=== PATIENT | male | born 1980 | race Caucasian/White ===

== ENCOUNTER 2022-03-20 10:10 | Emergency (ER) | payer MEDICAID ==
[2022-03-20] MEDS ORDERED: Buprenorphine/Naloxone 2-0.5 MG Tab.SL ONE (11:00)
[2022-03-20] MEDS ORDERED: Sodium Chloride 0.9% 1,000 ML IV ONE (11:00)
[2022-03-20] MEDS ORDERED: Diltiazem 25 MG/5 ML SDV ONE (11:00)
[2022-03-20] MEDS ORDERED: LORazepam 2 MG/ML SDV ONE (11:00)
== END 2022-03-20 12:50 | disposition home or self-care (01) ==
LOC: JP.ED 10:10
DX: F11.23 Opioid dependence with withdrawal (principal); I48.91 Unspecified atrial fibrillation
CPT/HCPCS: 96361; 96374; 96375; 99283; A9270; J2060; J3490; J7030